=== PATIENT | female | born 1995 | race African-American/Black ===

== ENCOUNTER 2020-02-07 11:13 | Emergency (ER) | payer BC ==
[2020-02-07] MEDS ORDERED: MORPHINE 2 MG/ML SYR ONE (11:44)
[2020-02-07] MEDS ORDERED: ONDANSETRON 4 MG/2 ML VIAL ONE (11:44)
[2020-02-07 11:48] LABS: Absolute Lymphocytes (CBC) 2.2 K/uL (0.7-4.9); Basophils % 1.2 % (0-1.3); Hematocrit 40.5 % (36.0-45.0); Lymphocytes % 43.8 % (15.3-44.8); MPV 9.8 fL (7.6-11.3); RBC Red Blood Cell Count 4.35 M/uL (3.86-4.86)
[2020-02-07 12:00] LABS: ALT/SGPT 17 U/L (12-78); AST/SGOT 10 U/L (15-37); Albumin 3.9 g/dL (3.4-5.0); Alkaline Phosphatase 74 U/L (45-117); BUN Blood Urea Nitrogen 11 mg/dL (7-18); Bicarbonate 24 mmol/L (21-32); Bilirubin Direct 0.1 mg/dL (0-0.2); Bilirubin Total 0.4 mg/dL (0.2-1.0); Glucose Level 91 mg/dL (74-106); Lipase 92 U/L (73-393); Potassium 3.9 mmol/L (3.5-5.1); Protein, Total 7.7 g/dL (6.4-8.2); Sodium Level 141 mmol/L (136-145)
[2020-02-07 12:02] LABS: Urine Blood 1+ (NEG); Urine Glucose NEGATIVE (NEG); Urine Protein NEGATIVE (NEG)
--- NOTE | 2020-02-07 12:29 | RAD REPORT ---
EXAM DESCRIPTION: CTAbdomen Pelvis W Contrast - 02/07/2020 12:19 pm CLINICAL HISTORY: Abdominal pain. RLQ abd pain COMPARISON: No comparisons TECHNIQUE: Biphasic CT imaging of the abdomen and pelvis was performed with 100 ml non-ionic IV cont rast. All CT scans are performed using dose optimization technique as appropriate and may include automated exposure control or mA/KV adjustment according to patient size. FINDINGS: The lung bases are clear. The liver, spleen, pancreas, adrenal glands and kidneys are within normal limits. No bowel obstruction, free air, free fluid or abscess. The appendix is normal. No evidence of signi ficant lymphadenopathy. No suspicious bony findings. IMPRESSION: No acute intra-abdominal or pelvic finding.
[2020-02-07 12:40] LABS: Urine Bacteria <20 /HPF (<20); Urine Culture Reflex Order REFLEXED; Urine RBC <5 /HPF (NONE SEEN); Urine Yeast PRESENT (NONE SEEN)
--- NOTE | 2020-02-07 12:56 | EDPHYS ---
Physician Documentation [facility] Name: Catia Fontenot Age: 24 yrs Sex: Female : 1995 Arrival Date: 02/07/2020 Time: 11:14 Bed 18 Private MD: ED Physician Stu Veras HPI: 02/06 11:34 This 24 yrs old Black Female presents to ER via EMS with complaints of Abdominal Pain. rn 11:34 The patient presents with abdominal pain. The patient presents with abdominal pain rn right lower quadrant. Onset: The symptoms/episode began/occurred yesterday. The symptoms do not radiate. Associated signs and symptoms: Pertinent negatives: blood in stools, diarrhea, dysuria, fever, hematuria, vaginal discharge, vomiting, vomiting blood. The symptoms are described as intermittent, sharp. Modifying factors: The symptoms are alleviated by nothing, the symptoms are aggravated by nothing. Severity of pain: At its worst the pain was moderate in the emergency department the pain has improved. The patient has not experienced similar symptoms in the past. The patient has not recently seen a physician. Reports RLQ abd pain, began yesterday but went away, worse today, sharp, no fever/vomiting/diarrhea/vaginal discharge/urinary symptoms. NO hx of ovarian cysts. Just began menstrual cycle yesterday. . 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 - Social history:: Smoking status: Patient denies any tobacco usage or history of. - Family history:: not pertinent. - Hospitalizations: : No recent hospitalization is reported. ROS: 11:34 Constitutional: Negative for fever, chills, and weight loss, Eyes: Negative for injury, rn pain, redness, and discharge, Neck: Negative for injury, pain, and swelling, Cardiovascular: Negative for chest pain, palpitations, and edema, Respiratory: Negative for shortness of breath, cough, wheezing, and pleuritic chest pain, Abdomen/GI: + abd pain Back: Negative for injury and pain, : Negative for injury, bleeding, discharge, and swelling, MS/Extremity: Negative for injury and deformity, Skin: Negative for injury, rash, and discoloration, Neuro: Negative for headache, weakness, numbness, tingling, and seizure. Exam: 11:34 Constitutional: This is a well developed, well nourished patient who is awake, alert, rn and in no acute distress. Head/Face: Normocephalic, atraumatic. Cardiovascular: Regular rate and rhythm. No pulse deficits. Respiratory: No increased work of breathing, no retractions or nasal flaring. Abdomen/GI: soft, + RLQ tenderness, no rebound, no masses Skin: Warm, dry with normal turgor. Normal color with no rashes, no lesions, and no evidence of cellulitis. MS/ Extremity: Pulses equal, no cyanosis. Neurovascular intact. Full, normal range of motion. Equal circumference. Neuro: Awake and alert, GCS 15 Vital Signs: 11:14 BP 132 / 60; Pulse 86; Resp 17; Temp 97.5; Pulse Ox 98% ; bp 12:23 BP 134 / 82; Pulse 81; Resp 17; Pulse Ox 100% ; bp 13:16 BP 129 / 84; Pulse 80; Resp 16; Temp 98; Pulse Ox 100% ; bp MDM: 11:16 Patient medically screened. rn 12:54 Differential diagnosis: appendicitis, Endometriosis, non-specific abd pain, rn Ureterolithiasis, urinary tract infection. Data reviewed: vital signs, nurses notes, lab test result(s), radiologic studies, CT scan, and as a result, I will discharge patient. Counseling: I had a detailed discussion with the patient and/or guardian regarding: the historical points, exam findings, and any diagnostic results supporting the discharge/admit diagnosis, lab results, radiology results, the need for outpatient follow up, to return to the emergency department if symptoms worsen or persist or if there are any questions or concerns that arise at home. Response to treatment: the patient's symptoms have mildly improved after treatment, and as a result, I will discharge patient. Special discussion: Based on the patient's Hx, exam, and Dx evaluation, there is no indication for emergent surgery or inpatient Tx. It is understood by the patient/guardian that if the Sx's persist or worsen they need to return immediately for re-evaluation. I discussed with the patient/guardian in detail that at this point there is no indication for admission to the hospital. It is understood, however, that if the symptoms persist or worsen the patient needs to return immediately for re-evaluation. ED course: No acute findings in blood/UA/CT abdomen, will dc home with return precautions. UA shows 1+ blood, could be 2/2 either menstrual cycle or passed kidney stone. . 02/06 11:17 Order name: Basic Metabolic Panel; Complete Time: 12:33 02/06 11:17 Order name: CBC with Diff; Complete Time: 11:58 02/06 11:17 Order name: Hepatic Function; Complete Time: 12:33 02/06 11:17 Order name: Lipase; Complete Time: 12:33 02/06 11:17 Order name: Urine Microscopic Only 02/06 11:54 Order name: Urine Dipstick--Ancillary (enter results); Complete Time: 12:33 02/06 11:17 Order name: IV Saline Lock; Complete Time: 11:43 02/06 11:17 Order name: Labs collected and sent; Complete Time: 11:43 02/06 11:17 Order name: Urine Test (obtain specimen); Complete Time: 11:42 02/06 11:17 Order name: CT Abd/Pelvis - IV Contrast Only; Complete Time: 12:33 02/06 11:54 Order name: Urine --Ancillary (enter results); Complete Time: 12:33 02/06 12:41 Order name: Urine Culture [facility] 02/06 11:17 Order name: Urine Dipstick-Ancillary (obtain specimen); Complete Time: 11:42 rn Administered Medications: 11:30 Drug: morphine 2 mg Route: IVP; Site: left antecubital; bp 12:08 Follow up: Response: Pain is decreased bp 11:30 Drug: Zofran (Ondansetron) 4 mg Route: IVP; Site: left antecubital; bp 12:08 Follow up: Response: Nausea is decreased bp Disposition: 02/07/20 12:56 Discharged to Home. Impression: Unspecified abdominal pain. - Condition is Stable. - Discharge Instructions: Abdominal Pain, Adult. - Medication Reconciliation Form, Thank You Letter, Antibiotic Education, Prescription Opioid Use form. - Follow up: Private Physician; When: As needed; Reason: Recheck today's complaints, Re-evaluation by your physician. - Problem is new. - Symptoms have improved. Signatures: Dispatcher [employer] EDMS Stu Veras MD MD rn Brandon Gillespie RN RN bp Corrections: (The following items were deleted from the chart) 13:21 12:56 02/07/2020 12:56 Discharged to Home. Impression: Unspecified abdominal pain. bp Condition is Stable. Forms are Medication Reconciliation Form, Thank You Letter, Antibiotic Education, Prescription Opioid Use. Follow up: Private Physician; When: As needed; Reason: Recheck today's complaints, Re-evaluation by your physician. Problem is new. Symptoms have improved. rn
--- NOTE | 2020-02-07 12:56 | ER ---
Nurse's Notes [facility] Name: Catia Fontenot Age: 24 yrs Sex: Female : 1995 Arrival Date: 02/07/2020 Time: 11:14 Bed 18 Private MD: Diagnosis: Unspecified abdominal pain Presentation: 02/06 11:14 Chief complaint: EMS states: RLQ PAIN x2 DAYS. Coronavirus screen: Proceed with normal bp triage. Ebola Screen: No symptoms or risks identified at this time. Initial Sepsis Screen: Does the patient meet any 2 criteria? No. Patient's initial sepsis screen is negative. Does the patient have a suspected source of infection? No. Patient's initial sepsis screen is negative. Risk Assessment: Do you want to hurt yourself or someone else? Patient reports no desire to harm self or others. Onset of symptoms is unknown. Care prior to arrival: Medication(s) given: FENTANYL 75MCG, ZOFRAN 4MG IV initiated. 20 GA, in the left antecubital area. 11:14 Acuity: LIZET 3 bp 11:14 Method Of Arrival: EMS: [facility] bp Triage Assessment: 11:15 General: Appears in no apparent distress. uncomfortable, Behavior is cooperative, bp appropriate for age, anxious. Pain: Complains of pain in right lower quadrant. EENT: No deficits noted. Neuro: No deficits noted. Cardiovascular: No deficits noted. Respiratory: No deficits noted. GI: Reports nausea, vomiting. : No signs and/or symptoms were reported regarding the genitourinary system. Derm: No deficits noted. Musculoskeletal: No deficits noted. 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 - Social history:: Smoking status: Patient denies any tobacco usage or history of. - Family history:: not pertinent. - Hospitalizations: : No recent hospitalization is reported. Screenin:15 Abuse screen: Denies threats or abuse. Denies injuries from another. Nutritional bp screening: No deficits noted. Tuberculosis screening: No symptoms or risk factors identified. Fall Risk None identified. Assessment: 11:15 General: SEE TRIAGE NOTE. bp 12:23 Reassessment: PT RETURNED FROM CT. VS STABLE ON MONITOR. bp 13:16 Reassessment: PT D/C HOME AMBULATORY WITH FAMILY, DX WITH NON-SPECIFIC CHEST PAIN. bp Vital Signs: 11:14 BP 132 / 60; Pulse 86; Resp 17; Temp 97.5; Pulse Ox 98% ; bp 12:23 BP 134 / 82; Pulse 81; Resp 17; Pulse Ox 100% ; bp 13:16 BP 129 / 84; Pulse 80; Resp 16; Temp 98; Pulse Ox 100% ; bp ED Course: 11:14 Patient arrived in ED. bp 11:15 Patient has correct armband on for positive identification. Bed in low position. Call bp light in reach. Side rails up X2. 11:15 Maintain EMS IV. Dressing intact. Good blood return noted. Site clean \T\ dry. Gauge \T\ bp site: 20 GAUGE LEFT AC. 11:16 Stu Veras MD is Attending Physician. rn 11:16 Triage completed. bp 11:16 Arm band placed on. bp 11:17 Brandon Gillespie, RN is Primary Nurse. bp 12:01 Radiology exam delayed due to test not completed at this time. md1 12:19 CT Abd/Pelvis - IV Contrast Only In Process Unspecified. EDMS 13:19 No provider procedures requiring assistance completed. IV discontinued, intact, bp bleeding controlled, No redness/swelling at site. Pressure dressing applied. Administered Medications: 11:30 Drug: morphine 2 mg Route: IVP; Site: left antecubital; bp 12:08 Follow up: Response: Pain is decreased bp 11:30 Drug: Zofran (Ondansetron) 4 mg Route: IVP; Site: left antecubital; bp 12:08 Follow up: Response: Nausea is decreased bp Outcome: 12:56 Discharge ordered by MD. rn 13:19 Discharged to home ambulatory, with family. bp 13:19 Condition: stable 13:19 Discharge instructions given to patient, Instructed on discharge instructions, follow up and referral plans. Demonstrated understanding of instructions, follow-up care. 13:21 Patient left the ED. bp Signatures: Dispatcher [employer] EDMS Stu Veras MD MD rn Peltier, Brian, MALIKA RN bp Di Tolstoy, Nichole md1
[2020-02-07 13:27] VITALS: O2SAT 100
[2020-02-07 13:28] VITALS: BP 129/84; TEMP 98
== END 2020-02-07 13:21 | disposition home or self-care (01) ==
LOC: ER 11:13
DX: R10.31 Right lower quadrant pain (principal)
CPT/HCPCS: 87088; 85025; 87086; 80048; 36415; 81025; 80076; 83690; 74177; 96375; 96374; 99283; Q9967; J2270; J2405; 81003; 81015